=== PATIENT | male | born 1950 | race Asian ===

== ENCOUNTER 2017-05-18 13:00 | Inpatient (IN) | payer OTHER, BC ==
[~2017-05-18] VITALS: Ht 175.3 cm; Wt 70.8 kg
[~2017-05-18 13:00] MED LIST: ATEN25TA21 PO; CVS OMEPRAZOLE20 MG PO; LIPITOR20 MG PO; METFTAB PO
[2017-05-18 14:17] VITALS: BP 130/80; TEMP 98.1; Ht 175.3 cm; Wt 70.8 kg
[2017-05-18 16:00] VITALS: BP 115/78; TEMP 98.9
[2017-05-18 20:00] VITALS: BP 139/78; TEMP 97.6
[2017-05-19 08:00] VITALS: BP 135/86; TEMP 98.9
[2017-05-19 20:00] VITALS: BP 125/77; TEMP 98.9
[2017-05-20 08:00] VITALS: BP 135/81; TEMP 98.3
[2017-05-20 20:28] VITALS: BP 146/91; TEMP 98.7
[2017-05-21 08:00] VITALS: BP 133/86; TEMP 98.2
[2017-05-21 20:00] VITALS: BP 108/64; TEMP 98.6
[2017-05-22 07:55] VITALS: BP 125/77; TEMP 98.7
[2017-05-22 20:00] VITALS: BP 110/72; TEMP 98.6
== END 2017-05-23 16:00 | disposition home or self-care (01) | DRG 556 ==
LOC: MED/SURG 13:00
PROVIDERS: ADMIT Emergency Medicine
DX: M62.81 Muscle weakness (generalized) (principal); I10 Essential (primary) hypertension; E11.9 Type 2 diabetes mellitus without complications; F10.20 Alcohol dependence, uncomplicated
CPT/HCPCS: 36415; 82948; 96372

== ENCOUNTER 2017-11-18 12:35 | Outpatient (CLI) | payer BC ==
[2017-11-18 13:49] LABS: PLATELET COUNT 306 K/uL (142-355)
[2017-11-18 13:52] LABS: POTASSIUM 3.9 mmol/L (3.6-5.2); SODIUM 139 mmol/L (136-145)
== END 2017-11-18 19:40 | disposition home or self-care (01) ==
LOC: LAB 12:35
PROVIDERS: Internal Medicine
DX: E11.9 Type 2 diabetes mellitus without complications (principal)
CPT/HCPCS: 80053; 80061; 81000; 82043; 82570; 83036; 84443; 85027

== ENCOUNTER 2018-08-26 10:22 | Outpatient (CLI) | payer BC ==
[2018-08-26 11:07] LABS: PLATELET COUNT 251 K/uL (142-355)
[2018-08-26 11:11] LABS: POTASSIUM 3.8 mmol/L (3.6-5.2)
== END 2018-08-26 20:08 | disposition home or self-care (01) ==
LOC: LABW 10:22
PROVIDERS: Internal Medicine
DX: E11.9 Type 2 diabetes mellitus without complications (principal)
CPT/HCPCS: 36415; 80053; 80061; 81000; 83036; 84443; 85027

== ENCOUNTER 2019-02-10 10:13 | Outpatient (CLI) | payer BC ==
[2019-02-10 10:32] LABS: PLATELET COUNT 246 K/uL (142-355)
[2019-02-10 11:04] LABS: POTASSIUM 3.7 mmol/L (3.6-5.2)
== END 2019-02-10 19:19 | disposition home or self-care (01) ==
LOC: LABW 10:13
PROVIDERS: Internal Medicine
DX: E11.9 Type 2 diabetes mellitus without complications (principal)
CPT/HCPCS: 36415; 80053; 80061; 81000; 82043; 82570; 83036; 84439; 84443; 85027

== ENCOUNTER 2019-06-08 09:57 | Outpatient (CLI) | payer BC ==
[2019-06-08 10:15] LABS: PLATELET COUNT 252 K/uL (142-355)
[2019-06-08 10:39] LABS: POTASSIUM 4.2 mmol/L (3.6-5.2)
== END 2019-06-08 22:16 | disposition home or self-care (01) ==
LOC: LABW 09:57
PROVIDERS: Internal Medicine
DX: E11.9 Type 2 diabetes mellitus without complications (principal)
CPT/HCPCS: 36415; 80053; 81000; 82043; 82570; 83036; 84439; 84443; 85027

== ENCOUNTER 2020-04-17 10:26 | Outpatient (CLI) | payer BC ==
[2020-04-17 10:44] LABS: PLATELET COUNT 216 K/uL (142-355)
[2020-04-17 11:05] LABS: POTASSIUM 4.2 mmol/L (3.6-5.2)
== END 2020-04-17 23:53 | disposition home or self-care (01) ==
LOC: LABW 10:26
PROVIDERS: Internal Medicine
DX: E11.9 Type 2 diabetes mellitus without complications (principal)
CPT/HCPCS: 36415; 80053; 80061; 81000; 82043; 82570; 83036; 84439; 84443; 85027; 87077; 87086; 87088; 87186

== ENCOUNTER → 2020-04-27 | Outpatient (CLI) | payer OTHER, BC | LOC: CT 04-23 09:00 | DX: R31.9 Hematuria, unspecified (principal) ==

== ENCOUNTER 2020-06-07 13:07 | Outpatient (CLI) | payer BC ==
[2020-06-07 13:51] LABS: PLATELET COUNT 253 K/uL (142-355)
[2020-06-07 14:07] LABS: POTASSIUM 3.6 mmol/L (3.6-5.2)
== END 2020-06-07 19:33 | disposition home or self-care (01) ==
LOC: LABW 13:07
PROVIDERS: Specialist
DX: I63.9 Cerebral infarction, unspecified (principal)
CPT/HCPCS: 36415; 80053; 80061; 83090; 85027; 85651

== ENCOUNTER 2020-07-18 10:31 | Outpatient (CLI) | payer BC | END 2020-07-18 23:25 | disposition home or self-care (01) | LOC: MRI 10:31 | DX: I63.9 Cerebral infarction, unspecified (principal) | CPT/HCPCS: 36415; 82565; 84520 ==

== ENCOUNTER 2023-06-10 12:57 | Outpatient (CLI) | payer OTHER, BC ==
[~2023-06-10] VITALS: Ht 165.1 cm; Wt 70.3 kg
[2023-06-10 16:09] LABS: PLATELET COUNT 258 K/uL (142-355)
[2023-06-10 16:12] LABS: POTASSIUM 4.2 mmol/L (3.6-5.2)
== END 2023-06-10 19:09 | disposition home or self-care (01) ==
LOC: INF 12:57
PROVIDERS: Internal Medicine; ATTEND Internal Medicine
DX: E86.0 Dehydration (principal); Z79.899 Other long term (current) drug therapy
CPT/HCPCS: 80053; 80061; 81002; 83036; 84439; 84443; 85027; 96365; 96366; J3490